=== PATIENT | female | born 1930 | race Caucasian/White ===

== ENCOUNTER 2016-08-18 14:48 | Inpatient (IN) | payer MEDICARE, MEDICAID ==
--- NOTE | 2016-08-18 15:17 | Diagnostic Imaging Report ---
Portable chest x-ray History: Pain Allowing for portable technique the heart size is normal. No focal pulmonary parenchymal processes. No hilar or mediastinal abnormalities. Impression: No acute abnormalities.
[2016-08-18 15:37] LABS: % BASOPHILS 0.5 % (0.0-2.0); % EOSINOPHILS 2.7 % (0.0-5.0); % LYMPHOCYTES 30.2 % (20.0-50.0); % MONOCYTES 6.1 % (2.0-10.0); % NEUTROPHILS 60.5 % (40.0-80.0); HEMATOCRIT 37.8 % (35.0-45.0); HEMOGLOBIN 12.7 gm/dL (11.7-16.1); MEAN CELL VOLUME 87.8 fl (81-100); MEAN CORPUSCULAR HEMOGLOBIN 29.6 pg (27.0-31.0); MEAN CORPUSCULAR HGB CONC 33.7 pg (28.0-36.0); MEAN PLATELET VOLUME 6.5 fl; NEUTROPHILE ABSOLUTE 5.5 Th/cmm (1.8-8.0); PLATELET COUNT 384 Th/cmm (150-400); RED CELL DISTRIBUTION WIDTH 14.6 % (11.5-20.0); WHITE BLOOD COUNT 8.9 Th/cmm (4.8-10.8)
[2016-08-18 15:42] LABS: ABG SOURCE Arterial; ALLEN TEST Positive; BE(B) 9.3 mEq/L (-3.0-3.0); CRITICAL VALUES REPORTED BY ACELIS; FIO2 21; HCO3 32.1 mEq/L (20.0-26.0); pH 7.45 (7.35-7.45)
[2016-08-18 15:49] LABS: INR 0.92 (0.5-1.4); PROTHROMBIN TIME (TEST) 9.6 SECONDS (9.5-11.5)
[2016-08-18 15:51] LABS: ALB/GLOB RATIO 1.1 (1.0-1.8); ALKALINE PHOSPHATASE 46 U/L (34-104); ANION GAP 10.9 (7.0-16.0); BILIRUBIN,TOTAL 0.3 mg/dL (0.3-1.0); BUN - UREA NITROGEN 14 mg/dL (7-25); CALCIUM SERUM 9.6 mg/dL (8.6-10.3); CARBON DIOXIDE 28.6 mEq/L (21.0-31.0); CHLORIDE 102 mEq/L (98-107); CREATININE - SERUM 0.7 mg/dL (0.6-1.2); GLUCOSE 159 mg/dL (70-105); POTASSIUM SERUM 3.5 mEq/L (3.5-5.1); SGOT 10 U/L (13-39); SGPT/ALT 6 U/L (7-52); SODIUM SERUM 138 mEq/L (136-145)
[2016-08-18 16:09] LABS: CHOLESTEROL 277 mg/dL (<200); TRIGLYCERIDES 337 mg/dL (<150)
--- NOTE | 2016-08-18 16:31 | ED Physician Chart ---
Chief Complaint/HPI - Patient Information Date Seen:: 08/18/16 Time Seen:: 15:00 Chief Complaint:: CHEST PAIN History of Present Illness:: THIS IS AN 86 YO FEMALE BIB EMS FROM A SENIOR LIVING FOR AN EVALUATION OF HER CHEST PAIN. 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 THE PATIENT IS INAPPROPIATE AT TIMES BUT COOPERATIVE. SHE DENIES SOB NOW BUT WAS SOB PRIOR TO THE CHEST PAIN. THE PAIN WAS IN THE CENTER OF HER CHEST AND NONE RADIATING. SHE SAID THE PAIN WAS 7/10. Allergies:: Allergies Allergy/AdvReac Type Severity Reaction Status Date / Time hydrocodone Allergy Verified 08/18/16 14:58 Vitals:: Vital Signs - 8 hr 08/18/16 14:48 Temp 97.7 F HR 75 RR 16 BP 180/82 O2 Sat % 94 Historian:: Patient Review:: Nurse's Note Reviewed, Old Chart Reviewed Review of Systems - Review of Systems General/Constitutional: No fever, No chills, No weight loss, No weakness, No diaphoresis, No edema, No loss of appetite Skin: No skin lesions, No rash, No bruising Head: No headache, No light-headedness Eyes: No loss of vision, No pain, No diplopia ENT: No earache, No nasal drainage, No sore throat, No tinnitus Neck: No neck pain, No swelling, No thyromegaly, No stiffness, No mass noted Cardio Vascular: Chest pain, No palpitations, No PND, No orthopnea, No edema Pulmonary: SOB, No cough, No sputum, No wheezing GI: No nausea, No vomiting, No diarrhea, Pain, No pain (RIGHT LOWER QUADRANT PAIN), No melena, No hematochezia, No constipation, No hematemesis G/U: No dysuria, No frequency, No hematuria Musculoskeletal: No bone or joint pain, No back pain, No muscle pain Endocrine: No polyuria, No polydipsia Psychiatric: No prior psych history, No depression, No anxiety, No suicidal ideation Hematopoietic: No bruising, No lymphadenopathy Allergic/Immuno: No urticaria, No angioedema Neurological: No syncope, No focal symptoms, No weakness, No paresthesia, No headache, No seizure, No dizziness, No confusion, No vertigo Past Medical History - Past Medical History Obtainable: Yes Past Medical History: HTN, CAD, PUD/GERD, Arthritis, Dementia Family History: None Social History: Non Smoker, No Alcohol, No Drug Use, Care Facility Surgical History: Appendectomy, Cholecystectomy, Hysterectomy Psychiatricy History: Depression, Dementia Family Medical History - Family Member Mother History Unknown: Yes Physical Exam - Physical Examination General/Constitutional: Awake, Well-developed, well-nourished, Alert, No distress, GCS 15, Non-toxic appearing, Ambulatory Head: Atraumatic Eyes: Lids, conjuctiva normal, PERRL, EOMI Skin: Nl inspection, No rash, No skin lesions, No ecchymosis, Well hydrated, No lymphadenopathy ENMT: External ears, nose nl, Nasal exam nl, Lips, teeth, gums nl Neck: Nontender, Full ROM w/o pain, No JVD, No nuchal rigidity, No bruit, No mass, No stridor Respiratory: Nl effort/Exclusion, Clear to Auscultation, No Wheeze/Rhonchi/Rales Cardio Vascular: RRR, No murmur, gallop, rubs, NL S1 S2 Other Cardio Vascular comments:: ELEVATE HR = 96 GI: No organomegaly, No hernia, Normal BS's, Nondistended, No mass/bruits, No McBurney tenderness Other GI comments:: TENDERNESS IN THE RIGHT LOWER QUADRANT : No CVA tenderness Extremities: No tenderness or effusion, Full ROM, normal strength in all extremities, No edema, Normal digits & nails Neuro/Psych: Alert/oriented, DTR's symmetric, Normal sensory exam, Normal motor strength, Judgement/insight normal, Mood normal, Normal gait, No focal deficits Misc: normal gait, Normal back, No paraspinal tenderness Labs/Radiology/EKG Results - Lab Results Results: Laboratory Tests 08/18/16 08/18/16 08/18/16 15:20 15:25 15:25 WBC RBC Hgb Hct MCV MCH MCHC Differential RDW Plt Count MPV Neutrophils % Lymphocytes % Monocytes % Eosinophils % Basophils % PT 9.6 INR 0.92 PTT (Actin FS) 22.8 L Specimen Source Arterial Sample Site Left Radial pH 7.45 pCO2 50.0 H pO2 60.0 L HCO3 32.1 H Base Excess 9.3 H O2 Saturation 92.0 Glenn Test Positive Vent Rate NA Inspired O2 21 Tidal Volume NA PEEP NA Pressure (ins/psv/peep) NA Critical Value ACELIS Sodium Potassium Chloride Carbon Dioxide Anion Gap BUN Creatinine Est GFR ( Amer) Est GFR (Non-Af Amer) BUN/Creatinine Ratio Glucose Calcium Total Bilirubin AST ALT Alkaline Phosphatase Troponin I Total Protein Albumin Globulin Albumin/Globulin Ratio Triglycerides 337 H Cholesterol 277 H LDL Cholesterol Direct 195 H HDL Cholesterol 35 08/18/16 08/18/16 08/18/16 15:25 15:25 15:25 WBC 8.9 RBC 4.30 Hgb 12.7 Hct 37.8 MCV 87.8 MCH 29.6 MCHC Differential 33.7 RDW 14.6 Plt Count 384 MPV 6.5 Neutrophils % 60.5 Lymphocytes % 30.2 Monocytes % 6.1 Eosinophils % 2.7 Basophils % 0.5 PT INR PTT (Actin FS) Specimen Source Sample Site pH pCO2 pO2 HCO3 Base Excess O2 Saturation Glenn Test Vent Rate Inspired O2 Tidal Volume PEEP Pressure (ins/psv/peep) Critical Value Sodium 138 Potassium 3.5 Chloride 102 Carbon Dioxide 28.6 Anion Gap 10.9 BUN 14 Creatinine 0.7 Est GFR ( Amer) TNP Est GFR (Non-Af Amer) TNP BUN/Creatinine Ratio 20.0 Glucose 159 H Calcium 9.6 Total Bilirubin 0.3 AST 10 L ALT 6 L Alkaline Phosphatase 46 Troponin I 0.01 Total Protein 6.6 Albumin 3.4 L Globulin 3.2 Albumin/Globulin Ratio 1.1 Triglycerides Cholesterol LDL Cholesterol Direct HDL Cholesterol - Radiology Results Results: CHEST X-RAY = NO CHF - EKG Interpretations EKG Time:: 14:56 Rate & Rhythm: SINUS [place]: RIGHT Intervals: RIGHT BUNDLE BLOCK ED Septic Shock - . Is Septic Shock (SBP<90, OR Lactate>4 mmol\L) present?: No - <6hrs of presentation: Vital Signs: Vital Signs - 8 hr 08/18/16 14:48 Temp 97.7 F HR 75 RR 16 BP 180/82 O2 Sat % 94 Reassessment (Disposition) - Reassessment Reassessment Condition:: Improved - Diagnosis Diagnosis:: UNSTABLE ANGINA HYPOXEMIA HYPERLIPIDEMIA - Patient Disposition Discharge/Transfer:: Acute Care w/in this hosp Admitting Medical Physician:: Kiran Miller Condition at Disposition:: Stable ED Discharge Plan - Patient Disposition Admit/Discharge/Transfer: Acute Care w/in this hosp Condition at Disposition: Stable
--- NOTE | 2016-08-18 21:14 | Admit Criteria Form ---
Admit Criteria Forms - Admit Criteria Diagnosis: TELEMETRY CARE Telemetry Admission Guidelines (Place 'X' for any and all applicable criteria): Admission to telemetry [A] may be indicated for ANY ONE of the following(1)(2)(3 )(4)(5): [X]I. Cardiac disease, including ANY ONE of the following (9)(10)(11)(12)(13 ): [ ]a) Postacute DC [ ]b) Low-risk patients with ST-segment elevation DC who have undergone successful percutaneous coronary intervention [X]c) Unstable angina [ ]d) Suspected DC (until it is ruled out) [ ]e) Post cardiac surgery (first 48 to 72 hours unless complications occur) [ ]f) Acute arrhythmias (including significant tachycardia or bradycardia) [B] [ ]g) Firing of an implantable cardioverter defibrillator [C] [ ]h) Suspected pacemaker or implantable cardioverter defibrillator malfunction (10) [ ]i) New administration or adjustment of an antiarrhythmic drug [D ] [ ]j) Child admitted for acute congestive heart failure [ ]j) Long QT syndrome [ ]k) Advanced heart block (eg, second-degree Mobitz type II, third- degree heart block) [ ]l) Acute myocarditis or pericarditis [ ]m) Short-term (ambulatory or inpatient) monitoring after a cardiac procedure as indicated by ANY ONE of the following [E]: [ ]i) Electrophysiologic studies [ ]ii) Percutaneous coronary intervention with stent placement [ ]iii) Pacemaker placement with cardiac conduction defect [ ]iv) Implantable cardiac defibrillator placement [ ]II. Drug overdose or poisoning with substance that causes arrhythmias or QT prolongation (eg, phenothiazines, sympathomimetic agents, cyclic antidepressants, digitalis, antiarrhythmic drugs)(15) [ ]III. Short-term (ambulatory or inpatient) monitoring after therapeutic or diagnostic procedure requiring conscious sedation or anesthesia (eg, endoscopy, elective cardioversion) [ ]IV. Acute cerebrovascular even[F](18) [ ]V. Massive blood transfusion (eg, at least 10 units of packed red blood cells in 24 hours) [ ]. Variceal bleeding after endoscopy, sclerotherapy, or IV vasopressin [ ]VII. Uncorrected electrolyte abnormalities associated with an increased risk of dangerous arrhythmia [G]; examples include [ ]a) Hyperkalemia with attributable ECG changes [ ]b) Potassium greater than 6.5 mmol/L (mEq/L) in a patient without history of chronic renal disease [ ]c) Prolonged QT attributed to hypokalemia, hypomagnesemia, or hypocalcemia [ ]VIII.Unexplained syncope or other neurologic event suspected of being due to arrhythmia due to a finding that increases risk; examples include(19)(20)(21): [ ]a) High-risk ECG findings (eg, bifascicular block, bradycardia, abnormal QT interval, ventricular pre- excitation) [ ]b) History of previous syncope due to arrhythmia [ ]c) Abnormal ventricular function (eg, reduced ejection fraction ) [ ]d) Exertional or supine syncope [ ]e) Concerning syncope characteristics (eg, sudden loss of consciousness without prodrome) [ ]f) Family history of sudden [ ]g) Use of arrhythmogenic medication [ ]h) Suspected cardiac ischemia [ ]i) Known channelopathy (eg, long QT syndrome, Brugada syndrome, or catecholaminergic paroxysmal ventricular tachycardia) [ ]j) Known structural heart disease (eg, hypertrophic cardiomyopathy , severe valvular disease) [ ]k) Palpitations preceding syncope The original [employer] content created by [employer] has been revised. The portions of the content which have been revised are identified through the use of italic text or in bold, and [email or web address] has neither reviewed nor approved the modified material. All other unmodified content is copyright [employer]. Please see references footnoted in the original [employer] edition 2016 Admit Criteria Met?: Yes
[2016-08-18] MEDS ORDERED: Maalox 30 mL Cup PO PRN (21:35)
[2016-08-18] MEDS ORDERED: Albuterol/Ipratropium Neb 3 ML AERS HHN PRN (21:35)
[2016-08-19] MEDS ORDERED: Pneumococcal Vaccine 0.5 mL Vial IM ONE (09:00)
[2016-08-19 09:46] LABS: URINE BILIRUBIN NEGATIVE (NEGATIVE); URINE BLOOD TRACE (NEGATIVE); URINE COLOR YELLOW; URINE GLUCOSE (UA) NEGATIVE (NEGATIVE); URINE KETONE NEGATIVE (NEGATIVE); URINE PH 7.5; URINE PROTEIN NEGATIVE (NEGATIVE); URINE UROBILINOGEN 0.2 E.U./dL (0.2 - 1.0)
[2016-08-19 09:47] LABS: URINE BACTERIA FEW /hpf (NONE SEEN); URINE EPITHELIAL CELLS FEW /lpf (FEW)
[2016-08-19] MEDS: Fenofibrate, Micronized 134 mg Cap PO SCH (20:41)
[2016-08-19] MEDS ORDERED: NIFEdipine 30 mg ER Tab PO STA (23:33)
--- NOTE | 2016-08-19 23:47 | Consultation ---
DATE OF CONSULTATION: 08/19/[address] Kiran Miller. HISTORY AND PHYSICAL: This is an 86-year-old female patient, who was brought in from [facility], complaining of chest pain. When came to the Emergency Room, troponin levels were the patient is admitted, at the present time no complaint of chest pain. PAST MEDICAL HISTORY: Hypertension, angina, osteoarthritis, osteoporosis, COPD, congestive heart failure, and dementia. FAMILY HISTORY: Unremarkable. SOCIAL HISTORY: No history of smoking, alcohol abuse. ALLERGIES: No known allergies. PHYSICAL EXAMINATION: VITAL SIGNS: Blood pressure 130/70, pulse 70, respirations 20. HEAD: Normocephalic. No lumps or bumps. EYES: Pupils are equal, reactive to light. Fundi show AV nicking, sclerae white, conjunctivae pink. NECK: Carotid 2+. Normal upstroke. JVD flat. Thyroid not palpable. Lymph nodes not palpable. CHEST: Shows increased AP diameter. No kyphosis, scoliosis. LUNGS: Bilateral bronchovesicular breath sounds, occasional wheeze. No rales. HEART: PMI fifth intercostal space with lateral to midclavicular line. S1 and S2. No S3 or S4. Systolic murmur, grade 2/6, lower left sternal border without radiation. ABDOMEN: Soft. Liver and spleen are not palpable. No organomegaly. Bowel sounds are active. NEUROLOGIC: Unremarkable. EXTREMITIES: Peripheral pulses 2+. No pedal edema. CLINICAL IMPRESSION: Atypical chest pain, stable angina, hypertension, osteoarthritis, chronic obstructive pulmonary disease, dementia, major depression, and congestive heart failure, chronic. We will get troponin level, EKG, and echocardiogram. JOB# [id number]
[2016-08-19] MEDS ORDERED: NIFEdipine 30 mg ER Tab PO ONE (23:53)
--- NOTE | 2016-08-19 23:56 | History & Physical ---
ADMIT DATE: 08/18/2016 CHIEF COMPLAINT: Chest pain. HISTORY OF PRESENT ILLNESS: This is an 86-year-old female with underlying history of hypertension, hyperlipidemia and obesity who [facility], was brought into Emergency Room for evaluation of intermittent chest pain for the past few days due to underlying risk factor and clinical presentations ____ with the patient ____ treatments. The patient ____ the patient. The patient stated that she has been having the chest pain for the past few days off and on. Denies any associated dizziness. No palpitation, no diaphoresis, no shortness of breath, no fever, no chills and no cough or other complaints. PAST MEDICAL HISTORY: Hypertension and hyperlipidemia. PAST SURGICAL HISTORY: No reports of any past surgery. FAMILY HISTORY: Noncontributory. SOCIAL HISTORY: Lives at nursing facility. Denies any alcohol, tobacco or street drug use. CURRENT MEDICATIONS: ____, Coreg, hydrochlorothiazide, Depakote, Colace, TriCor, Cozaar, Lipitor, albuterol ____ ipratropium, Tylenol and Maalox. ALLERGIES: ALLERGIC TO HYDROCODONE. REVIEW OF SYSTEMS: As per HPI. Other 12-point system review appears negative. PHYSICAL EXAMINATION: VITAL SIGNS: Temperature 98.8, pulse 94, respirations 18, blood pressure 153/97, oxygen saturation 96% through nasal cannula. GENERAL APPEARANCE: The patient does not seem in acute distress. CARDIOVASCULAR: S1, S2 normal. LUNGS: Clear to auscultation bilaterally. ABDOMEN: Soft, nontender and no guarding. NEUROLOGIC: The patient was evaluated ____alert and awake, follows commands, moves all extremities. Grossly nonfocal. LABORATORY DATA: Available laboratory data WBC 8.9, hemoglobin 12.____, hematocrit 37.8 and platelets is 384. PT ____ and INR 0.92. ABG: A pH 7.45, pCO2 of 50, pO2 of 60, bicarbonate 32 and O2 saturation is 92. Sodium 138, potassium is 3.5 and chloride is 102. BUN 14 and creatinine 0.7. Hemoglobin A1c 5.4, glucose 159 and calcium 9.6. Troponin 0.01, 0.01 and 0.01. Albumin is 3.4. LDL 195, total cholesterol 277, ____. TSH 1.22. Urine is negative. CHEST X-RAY: Negative for ____. ASSESSMENT: 1. Chest pain, rule out acute coronary syndrome. 2. Hypercapnia with hypoxemia, unclear etiology. 4. Hypertensions, uncontrolled. 5. Hyperlipidemia, uncontrolled. 6. Obesity. 7. Chronic constipation. PLAN: The patient admitted to tele unit. Serial troponins were obtained. Cardiology was consulted. Echocardiogram was ordered. The patient's home medications were reconciled, will be continued. The patient's blood pressure seems uncontrolled, increase Losartan to 100. Also, the patient was started on statin and fenofibrate. Pulmonology was also consulted for evaluation of hypoxemia with hypercapnia. Repeat ABG ordered for tomorrow morning, discussed with the patient regarding her condition, plan of care per nursing staff. JOB# [id number]
[2016-08-20] MEDS: Fenofibrate, Micronized 134 mg Cap PO SCH (08:12)
[2016-08-20] MEDS ORDERED: NIFEdipine 30 mg ER Tab PO SCH (09:00)
[2016-08-20 09:30] LABS: ABG SOURCE Arterial; ALLEN TEST Positive; BE(B) 11.6 mEq/L (-3.0-3.0); HCO3 33.9 mEq/L (20.0-26.0); pH 7.49 (7.35-7.45)
[2016-08-20 09:31] LABS: FIO2 21
[2016-08-20] MEDS: NIFEdipine 30 mg ER Tab PO SCH (09:54)
--- NOTE | 2016-08-20 19:19 | General Progress Note ---
Subjective - Review of Systems Service Date: 08/20/16 Subjective: Patient feels fine denied any complaints one of the blood culture came back positive patient afebrile Objective - Results Result Diagrams: 08/18/16 15:25 08/18/16 15:25 Recent Labs: Laboratory Last Values WBC 8.9 Th/cmm (4.8-10.8) 08/18/16 15:25 RBC 4.30 Mil/cmm (3.80-5.20) 08/18/16 15:25 Hgb 12.7 gm/dL (11.7-16.1) 08/18/16 15:25 Hct 37.8 % (35.0-45.0) 08/18/16 15:25 MCV 87.8 fl (81-100) 08/18/16 15:25 MCH 29.6 pg (27.0-31.0) 08/18/16 15:25 MCHC Differential 33.7 pg (28.0-36.0) 08/18/16 15:25 RDW 14.6 % (11.5-20.0) 08/18/16 15:25 Plt Count 384 Th/cmm (150-400) 08/18/16 15:25 MPV 6.5 fl 08/18/16 15:25 Neutrophils % 60.5 % (40.0-80.0) 08/18/16 15:25 Lymphocytes % 30.2 % (20.0-50.0) 08/18/16 15:25 Monocytes % 6.1 % (2.0-10.0) 08/18/16 15:25 Eosinophils % 2.7 % (0.0-5.0) 08/18/16 15:25 Basophils % 0.5 % (0.0-2.0) 08/18/16 15:25 PT 9.6 SECONDS (9.5-11.5) 08/18/16 15:25 INR 0.92 (0.5-1.4) 08/18/16 15:25 PTT (Actin FS) 22.8 SECONDS (26.0-38.0) L 08/18/16 15:25 Specimen Source Arterial 08/20/16 09:07 Sample Site Right Radial 08/20/16 09:07 pH 7.49 (7.35-7.45) H 08/20/16 09:07 pCO2 48.0 mmHg (35.0-45.0) H 08/20/16 09:07 pO2 60.0 mmHg (80.0-100.0) L 08/20/16 09:07 HCO3 33.9 mEq/L (20.0-26.0) H 08/20/16 09:07 Base Excess 11.6 mEq/L (-3.0-3.0) H 08/20/16 09:07 O2 Saturation 93.0 % (92.0-100.0) 08/20/16 09:07 Glenn Test Positive 08/20/16 09:07 Vent Rate NA 08/20/16 09:07 Inspired O2 21 08/20/16 09:07 Tidal Volume NA 08/20/16 09:07 PEEP NA 08/20/16 09:07 Pressure (ins/psv/peep) NA 08/20/16 09:07 Critical Value LZHANG 08/20/16 09:07 Sodium 138 mEq/L (136-145) 08/18/16 15:25 Potassium 3.5 mEq/L (3.5-5.1) 08/18/16 15:25 Chloride 102 mEq/L (98-107) 08/18/16 15:25 Carbon Dioxide 28.6 mEq/L (21.0-31.0) 08/18/16 15:25 Anion Gap 10.9 (7.0-16.0) 08/18/16 15:25 BUN 14 mg/dL (7-25) 08/18/16 15:25 Creatinine 0.7 mg/dL (0.6-1.2) 08/18/16 15:25 Est GFR ( Amer) TNP 08/18/16 15:25 Est GFR (Non-Af Amer) TNP 08/18/16 15:25 BUN/Creatinine Ratio 20.0 08/18/16 15:25 Glucose 159 mg/dL (70-105) H 08/18/16 15:25 Hemoglobin A1c % 5.4 % (4.0-6.0) 08/18/16 15:25 Calcium 9.6 mg/dL (8.6-10.3) 08/18/16 15:25 Total Bilirubin 0.3 mg/dL (0.3-1.0) 08/18/16 15:25 AST 10 U/L (13-39) L 08/18/16 15:25 ALT 6 U/L (7-52) L 08/18/16 15:25 Alkaline Phosphatase 46 U/L (34-104) 08/18/16 15:25 Troponin I 0.01 ng/mL (0.01-0.05) 08/19/16 07:25 Total Protein 6.6 gm/dL (6.0-8.3) 08/18/16 15:25 Albumin 3.4 gm/dL (3.7-5.3) L 08/18/16 15:25 Globulin 3.2 gm/dL 08/18/16 15:25 Albumin/Globulin Ratio 1.1 (1.0-1.8) 08/18/16 15:25 Triglycerides 337 mg/dL (<150) H 08/18/16 15:25 Cholesterol 277 mg/dL (<200) H 08/18/16 15:25 LDL Cholesterol Direct 195 mg/dL (75-193) H 08/18/16 15:25 HDL Cholesterol 35 mg/dL (23-92) 08/18/16 15:25 TSH 1.22 uIU/ml (0.34-5.60) 08/18/16 15:25 Urine Source CLEAN C 08/19/16 09:00 Urine Color YELLOW 08/19/16 09:00 Urine Clarity SL. CLOUDY (CLEAR) 08/19/16 09:00 Urine pH 7.5 08/19/16 09:00 Ur Specific [place] 1.020 (1.005-1.030) 08/19/16 09:00 Urine Protein NEGATIVE mg/dL (NEGATIVE) 08/19/16 09:00 Urine Glucose (UA) NEGATIVE mg/dL (NEGATIVE) 08/19/16 09:00 Urine Ketones NEGATIVE mg/dL (NEGATIVE) 08/19/16 09:00 Urine Blood TRACE (NEGATIVE) 08/19/16 09:00 Urine Nitrate NEGATIVE (NEGATIVE) 08/19/16 09:00 Urine Bilirubin NEGATIVE (NEGATIVE) 08/19/16 09:00 Urine Urobilinogen 0.2 E.U./dL (0.2 - 1.0) 08/19/16 09:00 Ur Leukocyte Esterase NEGATIVE (NEGATIVE) 08/19/16 09:00 Urine RBC 2-4 /hpf (0-5) 08/19/16 09:00 Urine WBC 2-5 /hpf (0-5) 08/19/16 09:00 Ur Epithelial Cells FEW /lpf (FEW) 08/19/16 09:00 Urine Bacteria FEW /hpf (NONE SEEN) 08/19/16 09:00 RPR NONREACTIVE (NONREACTIVE) 08/18/16 15:25 - Physical Exam Vitals and I&O: Vital Signs Temp 98.2 F 08/20/16 16:00 Pulse 74 08/20/16 16:00 Resp 18 08/20/16 16:00 BP 144/72 08/20/16 16:00 Pulse Ox 96 08/20/16 16:00 Intake & Output 08/20/16 08/20/16 08/21/16 06:59 18:59 06:59 Intake Total 1650 Balance 1650 Intake: Oral 1650 Other: # Voids 3 Active Medications: Current Medications Acetaminophen (Tylenol) 650 mg PO Q4HR PRN PRN Reason: pain Stop: 10/17/16 21:34 Last Admin: 08/20/16 17:01 Dose: 650 mg Al Hydrox/Mg Hydrox/Simethicone (Maalox) 30 ml PO Q4HR PRN PRN Reason: Heartburn Stop: 10/17/16 21:34 Albuterol/Ipratropium (Duoneb Neb) 3 ml HHN Q2HR PRN PRN Reason: wheezing/sob Stop: 10/17/16 21:34 Atorvastatin Calcium (Lipitor) 40 mg PO DAILY SHERINE PRN Reason: Protocol Stop: 10/18/16 19:59 Last Admin: 08/20/16 09:52 Dose: 40 mg Bisacodyl (Dulcolax 10 Mg Supp) 10 mg RC DAILY PRN PRN Reason: MOM ineffective Stop: 10/17/16 21:34 Carvedilol (Coreg) 6.25 mg PO Q12H [facility] Stop: 10/17/16 21:44 Last Admin: 08/20/16 09:53 Dose: 6.25 mg Citalopram Hydrobromide (Celexa) 20 mg PO DAILY [facility] Stop: 10/18/16 14:59 Last Admin: 08/20/16 17:01 Dose: 20 mg Clonidine HCl (Catapres) 0.1 mg PO Q4HR PRN PRN Reason: For systolic over 150 Stop: 10/18/16 23:39 Last Admin: 08/20/16 06:09 Dose: 0.1 mg Divalproex Sodium (Depakote Dr) 500 mg PO DAILY [facility] PRN Reason: Protocol Stop: 10/18/16 08:59 Last Admin: 08/20/16 08:12 Dose: 500 mg Docusate Sodium (Colace) 250 mg PO DAILY [facility] Stop: 10/18/16 08:59 Last Admin: 08/20/16 08:12 Dose: 250 mg Fenofibrate (Tricor) 134 mg PO DAILY [facility] Stop: 10/18/16 19:59 Last Admin: 08/20/16 08:12 Dose: 134 mg Hydrochlorothiazide (Hctz) 12.5 mg PO DAILY [facility] Stop: 10/18/16 08:59 Last Admin: 08/20/16 08:11 Dose: 12.5 mg Losartan Potassium (Cozaar) 100 mg PO DAILY [facility] Stop: 10/18/16 19:57 Last Admin: 08/20/16 08:11 Dose: 100 mg Magnesium Oxide (Mag-Oxide) 400 mg PO DAILY [facility] Stop: 10/18/16 08:59 Last Admin: 08/20/16 08:10 Dose: 400 mg Mupirocin (Bactroban Oint) 1 appl TP BID [facility] Stop: 08/27/16 08:59 Last Admin: 08/20/16 17:06 Dose: 1 appl Nifedipine (Procardia Xl) 30 mg PO DAILY [facility] Stop: 10/19/16 08:59 Last Admin: 08/20/16 09:54 Dose: 30 mg Cardiovascular: Regular rate Lungs: Clear to auscultation Abdomen: Soft, no Tender Assessment/Plan - Assessment Assessment: Atypical chest pain Hypoxemia Bacteremia HTN Obesity - Plan Plan: Rpt blood culture ordered Rpt ABG still shows hypoxemia. Awaiting Pulmonary input Cardiac status stable Monitor BP Plan of care discussed with patient and nursing staff
[2016-08-21 05:47] LABS: % BASOPHILS 0.1 % (0.0-2.0); % EOSINOPHILS 2.6 % (0.0-5.0); % LYMPHOCYTES 32.6 % (20.0-50.0); % MONOCYTES 7.3 % (2.0-10.0); % NEUTROPHILS 57.4 % (40.0-80.0); HEMATOCRIT 38.8 % (35.0-45.0); HEMOGLOBIN 12.9 gm/dL (11.7-16.1); MEAN CORPUSCULAR HEMOGLOBIN 29.1 pg (27.0-31.0); MEAN CORPUSCULAR HGB CONC 33.1 pg (28.0-36.0); MEAN PLATELET VOLUME 6.4 fl; NEUTROPHILE ABSOLUTE 4.7 Th/cmm (1.8-8.0); PLATELET COUNT 391 Th/cmm (150-400); RED BLOOD COUNT 4.41 Mil/cmm (3.80-5.20); RED CELL DISTRIBUTION WIDTH 14.4 % (11.5-20.0); WHITE BLOOD COUNT 8.2 Th/cmm (4.8-10.8)
[2016-08-21] MEDS: Fenofibrate, Micronized 134 mg Cap PO SCH (09:26)
[2016-08-21] MEDS: NIFEdipine 30 mg ER Tab PO SCH (09:27)
[2016-08-21] MEDS ORDERED: Ipratropium Neb 0.5 mg/2.5 mL UD HHN SCH (15:00)
[2016-08-21] MEDS ORDERED: Budesonide 0.5 Mg/2 mL Ud HHN SCH (19:00)
--- NOTE | 2016-08-22 00:39 | Progress Notes ---
DATE: 08/21/2016 PROBLEM LIST: 1. Hypoxemia, etiology not clear. 2. Suspect obstructive sleep apnea syndrome. 3. Hypertension, dyslipoproteinemia, obesity and history of chronic constipation. SYMPTOMS: Nil, feeling okay. Denies of any chest pain today or any much of shortness of breath. PHYSICAL EXAMINATION: VITAL SIGNS: The patient's recorded vital signs, temperature is 98.8, BP is 117/66 and saturation is 94 on 3 liters. NECK: Veins not visualized. CHEST: Shows diminished air entry without any other adventitious breath sounds. HEART: Regular. ABDOMEN: Soft and nontender. EXTREMITIES: Shows no peripheral edema. ASSESSMENT: 1. The patient is clinically stable, question chronic obstructive pulmonary disease. 2. Question obstructive sleep apnea syndrome with morbid obesity with obesity hypoventilation syndrome. PLANS AND SUGGESTIONS: We will continue current treatment. We will repeat chest x-ray, blood gases room air and see how it is and go from there. JOB# [id number]
--- NOTE | 2016-08-24 00:04 | Consultation ---
DATE OF CONSULTATION: 08/20/2016 REASON FOR CONSULTATION: Shortness of breath with possibly COPD. HISTORY OF PRESENT ILLNESS: This is an 86-year-old female with history of multiple metabolic disease including hypertension, obesity as well as dyslipoproteinemia, lives in a local convalescent home. Initially was admitted for increasingly intermittent chest pain on and off for a few days associated with some shortness of breath. Subsequently, the patient was admitted for chest pain and because the patient was initially on room air, was hypoxemic. I was asked to see this patient for further care and necessary treatment. The patient does complain of some occasional coughing and slight dyspeptic symptoms. Denies of any pleuritic chest pain, denied of any hemoptysis and denied of swelling of the legs And questionable snoring. PAST MEDICAL HISTORY: History of hypertension and dyslipoproteinemia. PAST SURGICAL HISTORY: Nil. SOCIAL HISTORY: He lives in a convalescent home. No recent past use of alcohol, drug or drug abuse. She has some cardiac problems as well as history of taking some breathing treatment at home. Reasonably, she may have COPD. ALLERGIES: Allergic to possibly hydrocodone. PHYSICAL EXAMINATION: GENERAL: This is an elderly looking female, awake, fairly good built, not in any acute distress. VITAL SIGNS: The patient's recorded vitals, temperature has been around 98-99, respirations 20-22, blood pressure 150/70, saturation is okay on 2 liters of oxygen. HEENT: Examination of the head is essentially unremarkable. Pupils appear to be equal and reacting to light. Conjunctivae are slightly pallor. Oral cavity shows edentulous. NECK: No nodes in the neck could be palpated. Good bilateral carotid upstroke. CHEST: Shows diminished air entry with occasional rhonchi. HEART: Regular. ABDOMEN: Soft and nontender. EXTREMITIES: Shows no peripheral edema. LABORATORY DATA: The patient's chest x-ray is suggestive of hyperinflated lung. Other laboratory studies are essentially unremarkable. IMPRESSION AND ASSESSMENT: 1. The patient has hypoxemic probably secondary low-grade tracheobronchitis. 2. Though denies smoking, but suspects that she has chronic obstructive pulmonary disease , though this may be ____, which might have led to possibly low saturation. 3. Suspect associated obstructive sleep apnea syndrome and also morbid obesity, possibly gastroesophageal reflux disease. PLANS AND SUGGESTIONS: We will go ahead and give the patient aggressive inhalation treatment. Get the sputum studies. If she is able to get the sputum out, we will repeat the patient's chest x-ray including blood gases to see how it is and go from there. JOB# [id number]
== END 2016-08-21 20:11 | DRG 191 ==
LOC: ER 14:48 → TELE 18:20 → OBSVTOIN 19:46
PROVIDERS: ADMIT Family Medicine; ATTEND Family Medicine
DX: J44.0 Chronic obstructive pulmonary disease with (acute) lower respiratory infection (principal); J96.11 Chronic respiratory failure with hypoxia; R06.89 Other abnormalities of breathing; I50.9 Heart failure, unspecified; I11.0 Hypertensive heart disease with heart failure; F03.90 Unspecified dementia, unspecified severity, without behavioral disturbance, psychotic disturbance, mood disturbance, and anxiety; J44.9 Chronic obstructive pulmonary disease, unspecified; J40 Bronchitis, not specified as acute or chronic; I20.8 Other forms of angina pectoris; E78.5 Hyperlipidemia, unspecified; E66.9 Obesity, unspecified; K59.09 Other constipation; M19.90 Unspecified osteoarthritis, unspecified site; F32.9 Major depressive disorder, single episode, unspecified; G47.33 Obstructive sleep apnea (adult) (pediatric); I25.119 Atherosclerotic heart disease of native coronary artery with unspecified angina pectoris; Z68.22 Body mass index [BMI] 22.0-22.9, adult; Z88.5 Allergy status to narcotic agent; Z90.49 Acquired absence of other specified parts of digestive tract; Z90.710 Acquired absence of both cervix and uterus
CPT/HCPCS: 36415-UA; 36600-90; 71010-TC; 80053-TC; 80061-TC; 81001-TC; 82803-TC; 83036-90; 84443-TC; 84484-TC; 85025-TC; 85610-TC; 85730-TC; 86592-TC; 90779; 93005; 94640; 94760; Z7610

== ENCOUNTER 2016-08-28 21:15 | Emergency (ER) | payer MEDICARE, MEDICAID ==
[2016-08-28 21:45] LABS: MEAN CORPUSCULAR HGB CONC 33.5 pg (28.0-36.0); RED CELL DISTRIBUTION WIDTH 14.1 % (11.5-20.0)
--- NOTE | 2016-08-28 21:48 | ED Physician Chart ---
Chief Complaint/HPI - Patient Information Date Seen:: 08/28/16 Time Seen:: 21:30 Chief Complaint:: chest pain History of Present Illness:: This 86-year-old female at her senior care facility developed left-sided chest pain tonight without radiation. Pain was pressure-like and 8 on a scale of 1 to ten. Pain is increased by deep breathing. Patient given 3 nitroglycerin and the pain was totally relieved. Pain lasted about 5 minutes. 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) Review:: Nurse's Note Reviewed Review of Systems - Review of Systems General/Constitutional: No fever, No chills Skin: No skin lesions Head: No headache Eyes: Acuity change ENT: No earache Neck: No neck pain Cardio Vascular: Chest pain, No palpitations Pulmonary: No SOB GI: No nausea, No vomiting G/U: No dysuria, No hematuria Musculoskeletal: No bone or joint pain, No back pain Endocrine: No polyuria, No polydipsia Psychiatric: No prior psych history Hematopoietic: No bruising Allergic/Immuno: No urticaria Neurological: No syncope Past Medical History - Past Medical History Past Medical History: HTN, CAD Family History: HTN Social History: Non Smoker, No Alcohol, Other (quit smoking 10 years ago) Surgical History: Appendectomy, Cholecystectomy Psychiatricy History: None Medication: Reviewed Family Medical History - Family Member Mother History Unknown: Yes Physical Exam - Physical Examination General/Constitutional: Well-developed, well-nourished, Alert, No distress Other Gen/Cons comments:: knows the correct month and the correct year Head: Atraumatic Eyes: Lids, conjuctiva normal, PERRL Skin: Nl inspection, No rash ENMT: External ears, nose nl Other ENMT comments:: Edentulous Neck: No nuchal rigidity Respiratory: Nl effort/Exclusion, Clear to Auscultation Cardio Vascular: RRR GI: No tenderness/rebounding/guarding, No organomegaly : No CVA tenderness Other Extremities comments:: 2 out of 4 pretibial pitting edema Neuro/Psych: Alert/oriented, No focal deficits Misc: Normal back Labs/Radiology/EKG Results - Lab Results Results: Laboratory Results - last 24 hr 08/28/16 08/28/16 08/28/16 21:38 21:38 21:38 WBC 13.3 H D RBC 4.40 Hgb 13.0 Hct 38.8 MCV 88.1 MCH 29.5 MCHC Differential 33.5 RDW 14.1 Plt Count 461 H MPV 6.4 Neutrophils % 75.3 Lymphocytes % 18.6 L Monocytes % 4.5 Eosinophils % 1.6 Basophils % 0.0 Sodium 138 Potassium 3.7 Chloride 101 Carbon Dioxide 31.3 H Anion Gap 9.4 BUN 21 Creatinine 0.9 Est GFR ( Amer) TNP Est GFR (Non-Af Amer) TNP BUN/Creatinine Ratio 23.3 Glucose 147 H Whole Bld Lactic Acid Calcium 10.0 Troponin I 0.01 B-Natriuretic Peptide 08/28/16 08/28/16 21:38 22:17 WBC RBC Hgb Hct MCV MCH MCHC Differential RDW Plt Count MPV Neutrophils % Lymphocytes % Monocytes % Eosinophils % Basophils % Sodium Potassium Chloride Carbon Dioxide Anion Gap BUN Creatinine Est GFR ( Amer) Est GFR (Non-Af Amer) BUN/Creatinine Ratio Glucose Whole Bld Lactic Acid 1.70 Calcium Troponin I B-Natriuretic Peptide 64.6 - Radiology Results Results: CXR: no infiltrate; no pneumothorax - EKG Interpretations Rate & Rhythm: NSR rate 93 Novelty: normal Comments:: IRBBB Assessment - Assessment General Assessment: Talk to Dr. Grace at 2320. He says patient has had a negative workup for coronary artery disease and should be discharged back to her facility ED Septic Shock - . Is Septic Shock (SBP<90, OR Lactate>4 mmol\L) present?: No - <6hrs of presentation: Vital Signs: Vital Signs - 8 hr 08/28/16 21:15 Temp 99.3 F HR 88 RR 19 BP 177/88 O2 Sat % 91 Reassessment (Disposition) - Reassessment Reassessment Condition:: Unchanged - Aftercare/Follow up Instructions Aftercare/Follow-Up Instructions:: Refer to Discharge Instructions - Patient Disposition Discharge/Transfer:: [facility] - [facility] Spoke to:: George Grace Condition at Disposition:: Stable, Improved
[2016-08-28 21:50] LABS: % EOSINOPHILS 1.6 % (0.0-5.0); % LYMPHOCYTES 18.6 % (20.0-50.0); % MONOCYTES 4.5 % (2.0-10.0); % NEUTROPHILS 75.3 % (40.0-80.0); HEMATOCRIT 38.8 % (35.0-45.0); MEAN CELL VOLUME 88.1 fl (81-100); MEAN CORPUSCULAR HEMOGLOBIN 29.5 pg (27.0-31.0); MEAN PLATELET VOLUME 6.4 fl; PLATELET COUNT 461 Th/cmm (150-400)
[2016-08-28 21:56] LABS: WHITE BLOOD COUNT 13.3 Th/cmm (4.8-10.8)
[2016-08-28 21:58] LABS: ANION GAP 9.4 (7.0-16.0); BUN - UREA NITROGEN 21 mg/dL (7-25); BUN/CREATININE RATIO 23.3; CARBON DIOXIDE 31.3 mEq/L (21.0-31.0); CHLORIDE 101 mEq/L (98-107); CREATININE - SERUM 0.9 mg/dL (0.6-1.2); GLUCOSE 147 mg/dL (70-105); POTASSIUM SERUM 3.7 mEq/L (3.5-5.1); SODIUM SERUM 138 mEq/L (136-145)
--- NOTE | 2016-08-29 09:04 | Diagnostic Imaging Report ---
CHEST X-RAY: AP view INDICATION: pain COMPARISON: 08/18/2016 FINDINGS: The patient is rotated. No focal consolidation or effusions. Chronic lung changes are noted. Heart size at the upper limits of normal. Tortuous aorta is noted. Degenerative changes of the spine are noted. IMPRESSION: Limited exam due to rotation. Chronic lung changes are seen with no focal consolidation identified Tortuous aorta.
== END 2016-08-29 00:39 ==
LOC: ER 21:15
DX: R07.89 Other chest pain (principal); I10 Essential (primary) hypertension; I25.10 Atherosclerotic heart disease of native coronary artery without angina pectoris; Z90.49 Acquired absence of other specified parts of digestive tract; Z88.6 Allergy status to analgesic agent; Z87.891 Personal history of nicotine dependence
CPT/HCPCS: 36415-UA; 71010-TC; 80048-TC; 83605; 83880-TC; 84484-TC; 85025-TC; 93005